=== PATIENT | male | born 1955 | race Two or more races ===

== ENCOUNTER 2024-03-26 05:30 | Day surgery (SDC) | payer OTHER ==
[2024-03-19 08:44] LABS: HEMATOCRIT 47.6 % (39.0-48.0); HEMOGLOBIN 16.5 g/dL (13-16.00); MEAN CELL VOLUME 89.3 fL (80.0-100.00); MEAN CORPUSCULAR HEMOGLOBIN 30.9 pg (27.00-32.0); MEAN CORPUSCULAR HGB CONC 34.6 g/dl (32.0-36.0); PLATELET COUNT 269 K/uL (150-450); RED BLOOD COUNT 5.33 M/uL (4.00-6.00); RED CELL DISTRIBUTION WIDTH 14.6 % (11.5-14.5)
[2024-03-19 08:58] LABS: PH,URINE 5.5 (5.0-8.0); URINE APPEARANCE Clear; URINE BILIRRUBIN Negative (NEGATIVE); URINE BLOOD Negative; URINE COLOR Yellow; URINE GLUCOSE Negative (NEGATIVE); URINE KETONE Negative (NEGATIVE); URINE LEUKOCYTE Negative; URINE NITRATE Negative; URINE PROTEIN Negative (NEGATIVE); URINE UROBILINOGEN 0.2 E.U./dl
[2024-03-19 09:02] LABS: INR 1.05; PARTIAL THROMBOPLASTIN TIME 26.3 SECONDS (22.0-34.0); PROTHROMBIN TIME 11.4 SECONDS (9.0-11.5)
[2024-03-19 09:10] LABS: URINE EPITHELIAL CELLS 0.5 uL (0.0-38.8); URINE RBC 0.4 uL (0.0-20.8); URINE WBC 0.2 uL (0.0-23.2)
[2024-03-19 09:54] LABS: ALBUMIN 4.2 gm/dL (3.4-5.0); BILIRUBIN TOTAL 0.97 mg/dL (0.3-1.2); CALCIUM 9.4 mg/dL (8.5-10.1); CREATININE SERUM 1.07 mg/dL (0.70-1.30); GFR 68.93; GLOBULINA 3.8 G/DL (2.4-3.5); POTASSIUM 4.54 mEq/L (3.5-5.1)
[~2024-03-26 05:30] MED LIST: SYNTHROID75 MCG
[2024-03-26] MEDS ORDERED: BUPIVACAINE HCL 30 ML VIAL IJ ONE (08:30)
[2024-03-26] MEDS ORDERED: CEFAZOLIN SODIUM 1,000 MG VIAL IV ONE (08:30)
[2024-03-26] MEDS ORDERED: KETOROLAC TROMETHAMINE 30 MG VIAL IV ONE (08:45)
[2024-03-26] MEDS ORDERED: TRAMADOL HCL50 MG PO (09:17)
[2024-03-26] MEDS ORDERED: MIRALAX17 GM PO (09:17)
[2024-03-26] MEDS ORDERED: KETO10TA2 PO (09:17)
[2024-03-26] MEDS ORDERED: TYLENOL ARTHRI650 MG PO (09:17)
[2024-03-26] MEDS ORDERED: MORPHINE SULFATE 4 MG/ML VIAL IV ONE ×2 (10:35→11:05)
== END 2024-03-26 11:50 | disposition home or self-care (01) ==
LOC: CIR.AMB 05:30
PROVIDERS: ATTEND Surgery
DX: K40.91 Unilateral inguinal hernia, without obstruction or gangrene, recurrent (principal); K42.0 Umbilical hernia with obstruction, without gangrene
CPT/HCPCS: 49650; 49592; C1781